=== PATIENT | female | born 1985 | race Caucasian/White ===

== ENCOUNTER → 2019-06-28 | Day surgery (SDC) | payer OTHER ==
[~2019-06-28] MED LIST: FENTANYL CITRATE/PF 100MCG/2 ML INJ ONE; LIDOCAINE HCL 2% LOCAL INJ 5 ML SDV VIAL INJ ONE; LINZESS290 MCG PO; MIDAZOLAM HCL 2 MG/2 ML VIAL ONE; PROBIOTIC & AC1 EACH PO; PROPOFOL IV EMULSION 10 MG/ML 20 ML VIAL ONE
--- OUTSIDE RECORDS SUMMARY | 2019-06-28 06:00 | XMS REPORT | Clinical Summary ---
Author Author [facility] Organization [facility] Address Unknown Phone Unavailable Care Team Providers Care Housekeeping Assistant Name Role Phone Pcp, No PCP Unavailable Oscar Montiel Unavailable Allergies Comments Active Allergy Reactions Severity Noted Date Patient has platelet dysfunction Nsaids (Non-Steroidal 10/09/2017 Anti-Inflammatory Drug) Medications End Date Status Medication Sig Dispensed Refills Start Date Active linaclotide (LINZESS) 145 Take 145 mcg 0 mcg Cap by mouth daily. 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 Last Filed Vital Signs Not on file Plan of Treatment Not on file Results Not on fileafter 06/27/2018 Insurance Payer Benefit Subscriber ID Type Phone Address Plan / Group [facility]/PO S CARE POS SELECT CHOICE Advance Directives For more information, please contact: [facility] [address] [place] [address] Date Inactivated Comments Code Status Date Activated 10/16/2017 4:06 PM Full Code 10/13/2017 10:41 AM This code status was determined by: Patient 10/13/2017 10:41 AM Full Code 10/13/2017 5:40 AM This code status was determined by: Patient
--- OUTSIDE RECORDS SUMMARY | 2019-06-28 06:00 | XMS REPORT | Summary of Care ---
Author Author [facility] Organization [facility] Address Unknown Phone Unavailable Care Team Providers Care Web Project Manager Name Role Phone System, Pcp Not In PCP Reason for Visit * Reason Comments Right Hand Pain Encounter Details Care Team Description Date Type Department Kevon Underwood MD [address] [place] [address] Right Hand Pain 10/19/2018 Office Visit [facility] Physical Medicine & Rehabilitation [address], [place] [address] Allergies Comments Active Allergy Reactions Severity Noted Date Pt was dx with Platelet dysfunction at 8 y.o Nsaids High 04/20/2017 documented as of this encounter (statuses as of 10/19/2018) Medications End Date Status Medication Sig Dispensed Refills Start Date Active Linaclotide (LINZESS) 145 Take 145 mg 0 MCG CAPS by mouth daily. Active gabapentin (NEURONTIN) Take 200 mg 0 100 MG capsule by mouth 3 times daily. documented as of this encounter (statuses as of 10/19/2018) Active Problems Problem Noted Date Platelet dysfunction 08/24/2017 documented as of this encounter (statuses as of 10/19/2018) Social History Date Tobacco Use Types Packs/Day Years Used Never Smoker Smokeless Tobacco: Never Used Drinks/Week oz/Week Comments Alcohol Use 3 x weekly Yes Sex Assigned at Date Recorded Not on file Industry Job Start Date Occupation Not on file Not on file Not on file Travel End Travel History Travel Start No recent travel history available. documented as of this encounter Last Filed Vital Signs Reading Time Taken Comments Vital Sign 126/71 10/19/2018 4:40 PM CDT Blood Pressure 68 10/19/2018 4:40 PM CDT Pulse 36.8 C (98.2 F) 10/19/2018 4:40 PM CDT Temperature - - Respiratory Rate - - Oxygen Saturation - - Inhaled Oxygen Concentration 56.7 kg (125 lb) 10/19/2018 4:40 PM CDT Weight 167.6 cm (5' 6") 10/19/2018 4:40 PM CDT Height 20.18 10/19/2018 4:40 PM CDT Body Mass Index documented in this encounter Progress Notes * Kevon Underwood MD - 10/19/2018 4:20 PM CDT 33 year old female presents s/p right sided first rib resection and scalenectomy for R N-TOS on 10/13/2017. She notes global improvement in her TOS symptoms in terms of frequency and severity. She is becoming more and more active. The hypoesthesia in the right chest wall is improving. There is less pain in th at region and the sensitivity is starting to return. ROS; As per HPI PE: discussion Assessment and Plan: 1)R TOS, s/p operative intervention as noted:at this time, she is doing quite we ll.She will continue modified activities including yoga. Greater [id number] was spent in the care of the patient during this encou nter and over half of that time was spent on counseling and coordination of care . We talked about her TOS, cough and the management plan going forward documented in this encounter Plan of Treatment Health Maintenance Due Date Last Done Comments TETANUS SHOT (ADULT) 2000 HIV SCREENING 08/14/2003 CERVICAL CANCER SCREENING 2006 3 YEAR FOLLOW UP FLU VACCINE > 6 MONTHS 09/16/2018 documented as of this encounter Results Not on filedocumented in this encounter Visit Diagnoses Diagnosis TOS (thoracic outlet syndrome) - Primar y Brachial plexus lesions documented in this encounter Insurance Type Payer Benefit Subscriber ID Effective Phone Address Plan / Dates Group O [facility] xxxxxxxxx 2017-P [address] [place] [address] [place] [address] documented as of this encounter
--- OUTSIDE RECORDS SUMMARY | 2019-06-28 06:00 | XMS REPORT ---
Author Author [facility] Organization [facility] Address Unknown Phone Unavailable Care Team Providers Care Farm Operations Manager Name Role Phone CORIN BOWERS Unavailable Unavailable BALA BACON Unavailable Unavailabl e Problems This patient has no known problems. Allergies, Adverse Reactions, Alerts This patient has no known allergies or adverse reactions. Medications This patient has no known medications. Encounters Start Date/Time End Date/Time Encounter Type Admission Type [facility] Care Department Encounter ID 2019-06-18 13:43:00 2019-06-18 13:43:00 Emergency E [facility] 7501 2018-05-30 10:39:00 2018-05-30 10:39:00 Emergency E [facility] 7500 Results Test Description Test Time Test Comments Text Results Atomic Results Result Comments RAD, CHEST, 1 VIEW, NON DEPT 2017-10-16 07:24:00 Reason for exam:->PostopIs the patient ?->NoShould this be performed at the bedside?->Yes FINAL REPORT CLINICAL HISTORY: Postop TECHNIQUE: 1 view of the chest. COMPARISON: 10/15/2017 IMPRESSION: Right chest wall subcutaneous emphysema is again seen without definitive evidence for pneumothorax. There is increased right apical pleural thickening versus pleural fluid. Small bilateral pleural effusions are unchanged. Bilateral lower lung airspace opacities including left lower lobe consolidation are unchanged. The cardiomediastinal silhouette is within normal limits for size. Signed: Dontae Chavez MDReport Verified Date/Time: 10/16/2017 07:24:57 Reading Location: [facility] Radiology Reading Room , BRAIN, WITHOUT CONTRAST 2017-10-15 18:16:[address] head without contrast 10/15/2017 6:15 PM CLINICAL HISTORY: Headache, acute, norm neuro exam TECHNIQUE: Axial noncontrast CT images through the head were obtained. This examination was performed according to our departmental dose optimization program, which includes automated exposure control, adjustment of the mA and/or kV according to patient size, and/or use of iterated reconstruction technique. COMPARISON: None available FINDINGS: There is no hemorrhage, extra-axial collection, mass, hydrocephalus, or midline shift. There is no CT evidence for cerebral infarction. The visualized paranasal sinuses and mastoid air cells are well aerated. The skull is intact. IMPRESSION: No intracranial hemorrhage or mass effect. If concern for acute pathology persists, further evaluation with MRI is recommended. Signed: Austen Tomlinson Verified Date/Time: 10/15/2017 18:16:15 Reading Location: [facility] Radiology Reading Room MBIN TIME 2017-10-15 17:54:00 THROMBIN TIME (BEAKER) (test code = 550) 14.2 secs 13.8-20 .0 [id number] 17:53:00* Test Item Value Reference Range Comments FIBRINOGEN LEVEL (BEAKER) (test code = 658) 441 mg/dl 225- 434 CBC W/PLT COUNT & AUTO [id number] 11:45:00* Test Item Value Reference Range Comments WHITE BLOOD CELL COUNT (BEAKER) (test code = 775) 7.7 K/ L 3.5-10.5 RED BLOOD CELL COUNT (BEAKER) (test code = 761) 2.82 M/ L 3.93-5.22 HEMOGLOBIN (BEAKER) (test code = 410) 8.9 GM/DL 11.2-15.7 HEMATOCRIT (BEAKER) (test code = 411) 27.9 % 34.1-44.9 MEAN CORPUSCULAR VOLUME (BEAKER) (test code = 753) 98.9 fL 79.4-94.8 MEAN CORPUSCULAR HEMOGLOBIN (BEAKER) (test code = 751) 31.6 pg 25.6-32.2 MEAN CORPUSCULAR HEMOGLOBIN CONC (BEAKER) (test code = 752) 31.9 GM/DL 32.2-35.5 RED CELL DISTRIBUTION WIDTH (BEAKER) (test code = 412) 12.0 % 11.7-14.4 PLATELET COUNT (BEAKER) (test code = 756) 127 K/CU MM 150-45 0 MEAN PLATELET VOLUME (BEAKER) (test code = 754) 10.6 fL 9.4-12.3 NUCLEATED RED BLOOD CELLS (BEAKER) (test code = 413) 0 /100 WBC 0-0 (CELLAVISION MANUAL DIFF)2017-10-15 11:45:00* Test Item Value Reference Range Comments NEUTROPHILS - REL (CELLAVISION)(BEAKER) (test code = 2816) 73 % LYMPHOCYTES - REL (CELLAVISION)(BEAKER) (test code = 2817) 14 % MONOCYTES - REL (CELLAVISION)(BEAKER) (test code = 2818) 4 % BANDS - REL (CELLAVISION)(BEAKER) (test code = 2826) 9 % 0-10 NEUTROPHILS - ABS (CELLAVISION)(BEAKER) (test code = 2830) 5.62 K/ul 1.56-6.13 LYMPHOCYTES - ABS (CELLAVISION)(BEAKER) (test code = 2831) 1.08 K/ul 1.18-3.74 MONOCYTES - ABS (CELLAVISION)(BEAKER) (test code = 2832) 0.31 K/ uL 0.24-0.36 BANDS - ABS (CELLAVISION)(BEAKER) (test code = 2840) 0.69 K/uL 0.00-0.80 TOTAL COUNTED (BEAKER) (test code = 1351) 100 RBC MORPHOLOGY (BEAKER) (test code = 762) Normal WBC MORPHOLOGY (BEAKER) (test code = 487) Normal PLT MORPHOLOGY (BEAKER) (test code = 486) Normal ARTIFACT (CELLAVISION)(BEAKER) (test code = 3432) Present PLATELET CONCENTRATION (CELLAVISION)(BEAKER) (test code = 3438) Decreased Received comment: User comments: Slide comments: PLATELET AGGREGATION: EXTENDED [id number] 10:34:00* Test Item Value Reference Range Comments STRONG ADP RESULT(BEAKER) (test code = 213) 89 % 70- 94 WEAK ADP RESULT(BEAKER) (test code = 2135) 95 % 60-91 ARACHADONIC ACID RESULT(BEAKER) (test code = 2138) 84 % 63-89 COLLAGEN RESULT(BEAKER) (test code = 2138) 87 % 65-89 EPINEPHRINE RESULT (BEAKER) (test code = 2139) 89 % 4 8-88 STRONG RISTOCETIN 1.5 MG/DL (BEAKER) (test code = 2140) 96 % 75-100 WEAK RISTOCETIN 0.5 MG/DL (BEAKER) (test code = 2141) 5 % 1-10 PLATELET AGG COMP INTERPRETATION (BEAKER) (test code = 2407) Normal aggregation results with all agonists. [id number] (BEAKER) (test code = 2612) Vernell Ackerman MD (electronic signature) PLATELET COUNT AGG (BEAKER) (test code = 2656) 154 K/CU MM 1 50-450 PERIPHERAL BLOOD SMEAR - HOLD [id number] 06:25:00* Test Item Value Reference Range Comments PERIPHERAL SMEAR SAVE (BEAKER) (test code = 1815) saved [id number] 04:32:00* Test Item Value Reference Range Comments MAGNESIUM (BEAKER) (test code = 627) 1.4 mg/dL 1.6-2.6 BASIC METABOLIC [id number] 04:32:00* Test Item Value Reference Range Comments SODIUM (BEAKER) (test code = 381) 134 meq/L 136-145 POTASSIUM (BEAKER) (test code = 379) 3.8 meq/L 3.5-5.1 CHLORIDE (BEAKER) (test code = 382) 102 meq/L 98-107 CO2 (BEAKER) (test code = 355) 24 meq/L 22-29 BLOOD UREA NITROGEN (BEAKER) (test code = 354) 6 mg/dL 7 -21 CREATININE (BEAKER) (test code = 358) 0.54 mg/dL 0.57-1.25 GLUCOSE RANDOM (BEAKER) (test code = 652) 98 mg/dL 70-105 CALCIUM (BEAKER) (test code = 697) 8.5 mg/dL 8.4-10.2 EGFR (BEAKER) (test code = 1092) 131 mL/min/1.73 sq m ESTIMATED GFR IS NOT ACCURATE CREATININE CLEARANCE IN PREDICTING GLOMERULAR FILTRATION RATE. ESTIMATED GFR IS NOT APPLICABLE FOR DIALYSIS PATIENTS. RAD, ABDOMEN/KUB, 1 VIEW [id number] 01:56:00Reason for exam:->abdominal painShould this be performed at the bedside?->YesFINAL REPORT CLINICAL HISTORY: Abdominal pain COMPARISON: None. FINDINGS: Two supine views of the abdomen are submitted. The abdominal bowel gas pattern is unobstructed. There is no focus of dilated large or small bowel. There is no evidence of organomegaly or significant ascites. No abnormal calcification is noted. There is mild sigmoid thoracolumbar scoliosis. Signed: Torsten Jason Verified Date/Time: 10/15/2017 01:56:06 Reading Location: [address] Reading Room , CHEST, 1 VIEW, [id number] 01:55:00Reason for exam:->painShould this be performed at the bedside?->YesFINAL REPORT CLINICAL INDICATION: Pain Comparison: 10/14/2017 The cardiomediastinal contours are stable. The lung volumes are low. Retrocardiac opacity in the left lung may reflect atelectasis but pneumonitis should be excluded clinically. Subcutaneous gas in the right lower neck and right chest wall persists. No right pneumothorax is identified. Signed: Torsten Jasono rt Verified Date/Time: 10/15/2017 01:55:21 Reading Location: [address] Reading Room Electronically signed by: TORSTEN JASON M.D. on 2017 01:55 AM RAD, CHEST, 1 VIEW, NON [id number] 21:36:00Reason for exam:-> s/p chest tube removalShould this be performed at the bedside?->YesFINAL REPORT CLINICAL INDICATION: Chest tube removal Comparison: Same dated 0438 hours A right chest tube has been removed. There is an increase in subcutaneous gas in the right chest wall but no underlying pneumothorax is identified. The cardiomediastinal contours are stable. Curvilinear opacity in the left lower lung suggests atelectasis. There is no focal consolidation, large pleural effusion or evidence of overt pulmonary edema. Signed: Torsten Jason Verified Date/Time: 10/14/2017 21:36:40 Reading Location: [address] Reading Room , CHEST, 1 VIEW, NON [id number] 07:57:00Reason for exam:->PostopIs the patient ?->NoShould this be performed at the bedside?->YesFINAL REPORT Comparison: 10/13/2017 TECHNIQUE: Single view of the chest FINDINGS: Scattered subsegmental atelectasis is again noted. No gross new lung parenchymal changes. No pneumothorax. Right- sided chest tube again noted. Cardiac silhouette is within normal limits. Signed: Nhan Temple MDRcelsoort Verified Date/Time: 10/14/2017 07:57:40 Reading Location: [facility] Radiology Reading Room UE [id number] 16:20:00Surgical Pathology Report Case: [id number] Authorizing Provider: Vivek Bwoers MD Collected: 10/13/2017 0952 Ordering Location: [facility] Received: 10/13/2017 1116 [facility] Patholog ist: Reyna Ann MD Specimen: Rib, Right, Right First Rib & Scalene Muscle RIGHT FIRST RIB AND SCALENE MUSCLE, REMOVAL: - BONE WITH ATTACHED MUSCLE IDENTIFIED (GROSS DIAGNOSIS) Signing Pathologist Direct Phone Line: [phone] signed by Reyna Ann MD on 10/13/2017 at 4:20 [facility] [place] [place]/[id number] outlet syndrome Right first rib and scalene muscleThe specimen is received in saline labeled with the patient's information and labeled "right first rib and scalene muscle" and consists of a segment of bone and attached muscle measuring 7 x 1.5 x 0.5 cm. Grossly no suspicious areas are seen. The specimen is submitted for gross identification. CG/ewRAD, CHEST, 1 VIEW, NON [id number] 12:36:00Reason for exam:->PostopIs the patient ?->NoShould this be performed at the bedside?->YesFINAL REPORT CLINICAL HISTORY: Postop TECHNIQUE: 1 view of the chest. COMPARISON: 10/12/2017 IMPRESSION: There is a right apical chest tube without definitive evidence for pneumothorax. There is right chest wall subcut aneous emphysema. There are new mild bilateral interstitial opacities. The cardi omediastinal silhouette is magnified by technique. Signed: Dontae Chavez MDRepor t Verified Date/Time: 10/13/2017 12:36:12 Reading Location: [facility] Reading Room Electronically signed by: DONTAE CHAVEZ M.D. on 018 12:36 PM BASIC METABOLIC [id number] 12:09:00* Test Item Value Reference Range Comments SODIUM (BEAKER) (test code = 381) 137 meq/L 136-145 POTASSIUM (BEAKER) (test code = 379) 4.2 meq/L 3.5-5.1 Specimen slightly hemolyzed CHLORIDE (BEAKER) (test code = 382) 109 meq/L 98-107 CO2 (BEAKER) (test code = 355) 23 meq/L 22-29 BLOOD UREA NITROGEN (BEAKER) (test code = 354) 10 mg/dL 7 -21 CREATININE (BEAKER) (test code = 358) 0.69 mg/dL 0.57-1.25 Specimen slightly hemolyzed GLUCOSE RANDOM (BEAKER) (test code = 652) 153 mg/dL 70-105 CALCIUM (BEAKER) (test code = 697) 8.2 mg/dL 8.4-10.2 EGFR (BEAKER) (test code = 1092) 99 mL/min/1.73 sq m ESTIMATED GFR IS NOT ACCURATE CREATININE CLEARANCE IN PREDICTING GLOMERULAR FILTRATION RATE. ESTIMATED GFR IS NOT APPLICABLE FOR DIALYSIS PATIENTS. [id number] 11:50:00* Test Item Value Reference Range Comments MAGNESIUM (BEAKER) (test code = 627) 1.8 mg/dL 1.6-2.6 Specimen slightly hemolyzed PROTHROMBIN TIME/[id number] 11:37:00* Test Item Value Reference Range Comments PROTIME (BEAKER) (test code = 759) 14.4 seconds 11.7-14.7 INR (BEAKER) (test code = 370) 1.1 <=5.9 RECOMMENDED COUMADIN/WARFARIN INR THERAPY RANGESSTANDARD DOSE: 2.0 - 3.0 Inclu belgica: PROPHYLAXIS for venous thrombosis, systemic embolization; TREATMENT for cynthia ous thrombosis and/or pulmonary embolus.HIGH RISK: Target INR is 2.5-3.5 for pat ients with mechanical heart valves.[id number] 11:37:00* Test Item Value Reference Range Comments PARTIAL THROMBOPLASTIN TIME (BEAKER) (test code = 760) 25.0 seco nds 22.5-36.0 CBC (HEMOGRAM ONLY)2017-10-13 11:26:00* Test Item Value Reference Range Comments WHITE BLOOD CELL COUNT (BEAKER) (test code = 775) 11.6 K/ L 3.5-10.5 RED BLOOD CELL COUNT (BEAKER) (test code = 761) 3.61 M/ L 3.93-5.22 HEMOGLOBIN (BEAKER) (test code = 410) 11.4 GM/DL 11.2-15.7 HEMATOCRIT (BEAKER) (test code = 411) 34.9 % 34.1-44.9 MEAN CORPUSCULAR VOLUME (BEAKER) (test code = 753) 96.7 fL 79.4-94.8 MEAN CORPUSCULAR HEMOGLOBIN (BEAKER) (test code = 751) 31.6 pg 25.6-32.2 MEAN CORPUSCULAR HEMOGLOBIN CONC (BEAKER) (test code = 752) 32.7 GM/DL 32.2-35.5 RED CELL DISTRIBUTION WIDTH (BEAKER) (test code = 412) 12.1 % 11.7-14.4 PLATELET COUNT (BEAKER) (test code = 756) 187 K/CU MM 150-45 0 MEAN PLATELET VOLUME (BEAKER) (test code = 754) 10.3 fL 9.4-12.3 NUCLEATED RED BLOOD CELLS (BEAKER) (test code = 413) 0 /100 WBC 0-0 CALCIUM, [id number] 11:02:00* Test Item Value Reference Range Comments CALCIUM IONIZED (BEAKER) (test code = 698) 1.04 mmol/L 1.12- 1.27 PH, BLOOD (BEAKER) (test code = 1810) 7.32 COMPREHENSIVE METABOLIC [id number] 11:30:00* Test Item Value Reference Range Comments TOTAL PROTEIN (BEAKER) (test code = 770) 7.2 gm/dL 6.0-8.3 ALBUMIN (BEAKER) (test code = 1145) 4.5 g/dL 3.5-5.0 ALKALINE PHOSPHATASE (BEAKER) (test code = 346) 42 U/L 40-150 BILIRUBIN TOTAL (BEAKER) (test code = 377) 0.5 mg/dL 0.2-1 .2 SODIUM (BEAKER) (test code = 381) 136 meq/L 136-145 POTASSIUM (BEAKER) (test code = 379) 3.8 meq/L 3.5-5.1 CHLORIDE (BEAKER) (test code = 382) 103 meq/L 98-107 CO2 (BEAKER) (test code = 355) 27 meq/L 22-29 BLOOD UREA NITROGEN (BEAKER) (test code = 354) 11 mg/dL 7 -21 CREATININE (BEAKER) (test code = 358) 0.75 mg/dL 0.57-1.25 GLUCOSE RANDOM (BEAKER) (test code = 652) 80 mg/dL 70-105 CALCIUM (BEAKER) (test code = 697) 9.7 mg/dL 8.4-10.2 AST (SGOT) (BEAKER) (test code = 353) 18 U/L 5-34 ALT (SGPT) (BEAKER) (test code = 347) 15 U/L 6-55 EGFR (BEAKER) (test code = 1092) 90 mL/min/1.73 sq m ESTIMATED GFR IS NOT ACCURATE CREATININE CLEARANCE IN PREDICTING GLOMERULAR FILTRATION RATE. ESTIMATED GFR IS NOT APPLICABLE FOR DIALYSIS PATIENTS. SCREEN, [id number] 11:24:00* Test Item Value Reference Range Comments TEST URINE (BEAKER) (test code = 583) Negative RAD, CHEST, 2 [id number] 11:16:00Reason for exam:->thoracic outlet syndrome FINAL REPORT INDICATION: thoracic outlet syndrome COMPARI SON: None. TECHNIQUE: Chest radiograph, two views, PA and lateral. FINDINGS / IM PRESSION:No cervical rib or other bony abnormality demonstrated at the thoracic inlet. Moderate thoracolumbar scoliosis is noted. Lung volumes are normal and uriel ngs are clear. Heart shadow is normal in size. No pulmonary edema or pneumonia i s demonstrated. No pneumothorax or pleural effusion is demonstrated. Signed: Isidro Cotoeport Verified Date/Time: 10/12/2017 11:16:20 Reading Location : [facility] Diagnostic Imaging Reading Room - [place] [address] /[id number] 11:13:00 * Test Item Value Reference Range Comments PROTIME (BEAKER) (test code = 759) 13.5 seconds 11.7-14.7 INR (BEAKER) (test code = 370) 1.0 <=5.9 PARTIAL THROMBOPLASTIN TIME (BEAKER) (test code = 760) 27.6 seco nds 22.5-36.0 RECOMMENDED COUMADIN/WARFARIN INR THERAPY RANGESSTANDARD DOSE: 2.0 - 3.0 Inclu belgica: PROPHYLAXIS for venous thrombosis, systemic embolization; TREATMENT for cynthia ous thrombosis and/or pulmonary embolus.HIGH RISK: Target INR is 2.5-3.5 for pat ients with mechanical heart valves.CBC W/PLT COUNT & AUTO [id number] 11:02:00* Test Item Value Reference Range Comments WHITE BLOOD CELL COUNT (BEAKER) (test code = 775) 4.4 K/ L 3.5-10.5 RED BLOOD CELL COUNT (BEAKER) (test code = 761) 4.07 M/ L 3.93-5.22 HEMOGLOBIN (BEAKER) (test code = 410) 12.8 GM/DL 11.2-15.7 HEMATOCRIT (BEAKER) (test code = 411) 39.5 % 34.1-44.9 MEAN CORPUSCULAR VOLUME (BEAKER) (test code = 753) 97.1 fL 79.4-94.8 MEAN CORPUSCULAR HEMOGLOBIN (BEAKER) (test code = 751) 31.4 pg 25.6-32.2 MEAN CORPUSCULAR HEMOGLOBIN CONC (BEAKER) (test code = 752) 32.4 GM/DL 32.2-35.5 RED CELL DISTRIBUTION WIDTH (BEAKER) (test code = 412) 12.3 % 11.7-14.4 PLATELET COUNT (BEAKER) (test code = 756) 219 K/CU MM 150-45 0 MEAN PLATELET VOLUME (BEAKER) (test code = 754) 10.1 fL 9.4-12.3 NUCLEATED RED BLOOD CELLS (BEAKER) (test code = 413) 0 /100 WBC 0-0 NEUTROPHILS RELATIVE PERCENT (BEAKER) (test code = 429) 46 % LYMPHOCYTES RELATIVE PERCENT (BEAKER) (test code = 430) 43 % MONOCYTES RELATIVE PERCENT (BEAKER) (test code = 431) 9 % EOSINOPHILS RELATIVE PERCENT (BEAKER) (test code = 432) 1 % BASOPHILS RELATIVE PERCENT (BEAKER) (test code = 437) 1 % NEUTROPHILS ABSOLUTE COUNT (BEAKER) (test code = 670) 2.02 K/ L 1.56-6.13 LYMPHOCYTES ABSOLUTE COUNT (BEAKER) (test code = 414) 1.88 K/ L 1.18-3.74 MONOCYTES ABSOLUTE COUNT (BEAKER) (test code = 415) 0.39 K/ L 0.24-0.36 EOSINOPHILS ABSOLUTE COUNT (BEAKER) (test code = 416) 0.05 K/ L 0.04-0.36 BASOPHILS ABSOLUTE COUNT (BEAKER) (test code = 417) 0.03 K/ L 0.01-0.08 IMMATURE GRANULOCYTES-RELATIVE PERCENT (BEAKER) (test code = 280 1) 0 % 0-1 PLATELET AGGREGATION: FUNCTION [id number] 17:34:00* Test Item Value Reference Range Comments WEAK ADP RESULT(BEAKER) (test code = 2135) 80 % 60-91 PLATELET FUNCTION SCREEN INTERP (BEAKER) (test code = 2173) 60-100% indicates normal platelet function [id number] (BEAKER) (test code = 2622) Vernell Ackerman MD (electronic signature) PLATELET COUNT AGG (BEAKER) (test code = 2656) 226 K/CU MM 1 50-450 Platelet Function Screen results may be falsely low with platelet counts< 100,000/cu mm.
[2019-06-28 10:10] VITALS: BP 102/55
== END | disposition home or self-care (01) ==
LOC: OR 05:30
PROVIDERS: ATTEND Internal Medicine Gastroenterology
DX: K58.1 Irritable bowel syndrome with constipation (principal); D12.2 Benign neoplasm of ascending colon; K63.89 Other specified diseases of intestine; K59.09 Other constipation; K64.0 First degree hemorrhoids; K21.9 Gastro-esophageal reflux disease without esophagitis; N83.02 Follicular cyst of left ovary; N83.01 Follicular cyst of right ovary; Z88.8 Allergy status to other drugs, medicaments and biological substances; Z01.812 Encounter for preprocedural laboratory examination; Z11.59 Encounter for screening for other viral diseases; Z80.0 Family history of malignant neoplasm of digestive organs; Z83.79 Family history of other diseases of the digestive system
CPT/HCPCS: 45385; 81025; 87635; J2001; J2250; J2704; J3010